=== PATIENT | female | born 2000 | race Caucasian/White ===

== ENCOUNTER 2021-03-06 03:19 | Inpatient (IN) ==
[2021-03-06 04:17] LABS: Bacteria,Urine Few per hpf (None-Few); Bilirubin,Urine Negative (Negative); Blood,Urine Moderate (Negative); Clarity,Urine Turbid (Clear); Color,Urine Light-Yellow (Yellow); Glucose,Urine (UA) Normal (Normal); Ketones,Urine Negative (Negative); Leukocyte Esterase,Urine Large (Negative); Mucus,Urine Few per lpf (None-Few); Nitrite,Urine Negative (Negative); PH,Urine 6.5 pH Units (5.0-8.0); Protein,Urine 30 mg/dL (Neg-Trace); Specific Gravity,Urine 1.027 (1.010-1.025); Squamous Epithelial Cell,Urine Moderate per hpf (None-Few); Urobilinogen,Urine Normal (Normal); WBC,Urine 30-50 per hpf (0-3)
[2021-03-06 04:20] LABS: Basophils % 0.4 %; Eosinophils # 0.1 K/mcL (0.0-0.6); Eosinophils % 1.1 %; Hematocrit 37.3 % (35.3-44.9); Hemoglobin 12.7 g/dL (11.5-15.4); Immature Granulocytes % 0.1 % (0-4); Lymphocytes # 1.9 K/mcL (0.6-4.6); Lymphocytes % 26.7 %; Mean Corpuscular Hemoglobin 30.5 pg (28.0-33.3); Mean Corpuscular Volume 89.7 fL (83.0-100.0); Mean Platelet Volume 11.9 fL (9.4-12.4); Monocytes # 0.6 K/mcL (0.0-1.3); Monocytes % 7.8 %; Neutrophils # 4.5 K/mcL (1.6-8.9); Platelet Count 229 K/mcL (140-400); Red Blood Count 4.16 M/mcL (3.82-4.97); Segmented Neutrophils % 63.9 %; White Blood Count 7.1 K/mcL (4.3-11.1)
[2021-03-06 04:25] LABS: Amphetamine Screen,Urine Negative ng/mL (Cutoff=1000); Barbiturate Screen,Urine Negative ng/mL (Cutoff=200); Benzodiazepines Screen,Urine Negative ng/mL (Cutoff=200); Cannabinoid Screen,Urine Negative ng/mL (Cutoff = 50); Cocaine Screen,Urine Negative ng/mL (Cutoff= 300); Opiate Screen,Urine Negative ng/mL (Cutoff=300); Phencyclidine Screen,Urine Negative ng/mL (Cutoff=25)
[2021-03-06 04:35] LABS: Acetaminophen < 10 mcg/mL (10-20); BUN/Creatinine Ratio 15 (6-26); Blood Urea Nitrogen 11 mg/dL (6-20); Calcium 9.6 mg/dL (8.6-10.3); Carbon Dioxide 21 mEq/L (23-29); Chloride 107 mEq/L (98-107); Ethanol < 10 mg/dL (Less than 10); Glucose 92 mg/dL (70-105); Osmolality,Calculated 285 (280-300); Potassium 3.6 mEq/L (3.5-5.1); Salicylate 7.7 mg/dL (15.0-30.0); Sodium 138 mEq/L (136-145); eGFR For African Americans > 60 (> 60); eGFR For Non-African Americans > 60 (> 60)
[2021-03-06 04:56] LABS: Influenza A PCR Negative (Negative); Influenza B PCR Negative (Negative); Resp. Syncytial Virus PCR Negative (Negative)
[2021-03-06 04:59] LABS: SARS-CoV-2 by PCR (In House) Negative (Negative)
[2021-03-06 07:00] LABS: Acetaminophen < 10 mcg/mL (10-20); Salicylate 16.7 mg/dL (15.0-30.0)
[2021-03-06] MEDS ORDERED: 0.9 % Sodium Chloride 1,000 ML IVC ONE (09:13)
[2021-03-06] MEDS ORDERED: cefTRIAXone 1,000 MG in Water for inj. (sterile) 10 ML IVP ONE (09:13)
[2021-03-06] MEDS ORDERED: traZODone 50 MG TABLET PO PRN (16:33)
[2021-03-06] MEDS ORDERED: Haloperidol Lactate 5 MG/ML VIAL IM PRN (16:33)
[2021-03-06] MEDS ORDERED: hydrOXYzine pamoate 25 MG CAPSULE PO PRN (16:33)
[2021-03-06] MEDS ORDERED: *HR* LORazepam 1 MG TABLET PO PRN (16:33)
[2021-03-06] MEDS ORDERED: Acetaminophen 325 MG TABLET PO PRN (16:33)
[2021-03-06] MEDS ORDERED: *HR* LORazepam 2 MG/ML VIAL IM PRN (16:33)
[2021-03-06] MEDS ORDERED: haloperidoL 5 MG TABLET PO PRN (16:33)
[2021-03-06] MEDS ORDERED: MOM Conc 10 ML UD.LIQ PO PRN (20:11)
[2021-03-06] MEDS ORDERED: Mag Hydrox/Al Hydrox/Simeth 30 ML UDC PO PRN (20:11)
[2021-03-06] MEDS: cephALEXin 500 MG CAPSULE PO SCH (20:51)
[2021-03-07] MEDS: cephALEXin 500 MG CAPSULE PO SCH (09:17)
[2021-03-07 10:44] VITALS: BP 107/69; PULSE 100; TEMP 98; O2SAT 96
== END 2021-03-07 11:30 | disposition home or self-care (01) | DRG 817 ==
LOC: EMEROOARM 03:19 → 1ANU 16:23
PROVIDERS: ADMIT Psychiatry & Neurology Psychiatry; ATTEND Psychiatry & Neurology Psychiatry